=== PATIENT | female | born 2000 | race Hispanic/Latino ===

== ENCOUNTER 2025-02-01 14:18 | Day surgery (SDC) | payer OTHER ==
[2025-02-01] MEDS ORDERED: hydrALAZINE 20 MG/ML VIAL SLOW IVP PRN (15:26)
[2025-02-01 16:28] VITALS: BMI 31.1
== END 2025-02-01 17:02 | disposition home or self-care (01) ==
LOC: CSHLD/OP 14:18
PROVIDERS: ATTEND Family Medicine
DX: O36.8130 Decreased fetal movements, third trimester, not applicable or unspecified (principal); O47.1 False labor at or after 37 completed weeks of gestation; Z3A.37 37 weeks gestation of pregnancy
CPT/HCPCS: 76819; 99283

== ENCOUNTER 2025-02-17 18:21 | Inpatient (IN) | payer MEDICAID, OTHER ==
[2025-02-17 19:28] VITALS: BMI 30.2
[2025-02-17] MEDS ORDERED: hydrALAZINE 20 MG/ML VIAL SLOW IVP PRN ×2 (19:31→20:36)
[2025-02-17 19:43] LABS: Fetal Membranes Rupture RUPTURE DETECTED (No Rupture)
[2025-02-17] MEDS ORDERED: Tranexamic Acid 1,000 MG/10 ML VIAL IVP PRN (20:36)
[2025-02-17] MEDS ORDERED: Lidocaine 1% (PF) 30 ML VIAL SC PRN (20:36)
[2025-02-17] MEDS ORDERED: Diphenoxylate HCl/Atropine Tablet PO PRN ×2 (20:36)
[2025-02-17] MEDS ORDERED: Acetaminophen 500 MG TAB PO PRN (20:36)
[2025-02-17] MEDS ORDERED: Carboprost 250 MCG/ML AMP IM PRN (20:36)
[2025-02-17] MEDS ORDERED: Methylergonovine 0.2 MG/ML VIAL IM PRN (20:36)
[2025-02-17] MEDS ORDERED: Oxytocin 30 units/NS 500 ML 500 ML IV SCH ×2 (20:45→21:00)
[2025-02-17 21:29] LABS: Hematocrit 34.1 % (34.9-44.5); Hemoglobin 11.8 g/dL (12.0-15.5); Mean Corpuscular Hemoglobin 31.7 pg (27.0-33.0); Mean Corpuscular Volume 91.7 fL (81.6-98.3); Platelet Count 214 10x3/uL (150-450); Red Blood Cell (RBC) Count 3.72 10x6/uL (3.90-5.03); White Blood Cell (WBC) Count 7.65 10x3/uL (3.5-10.5)
[2025-02-17 21:57] LABS: Hep B Surf Ag - L&D Non-Reactive S/CO (NonReactive)
[2025-02-17 21:58] LABS: Syphilis Antibody Index 0.05 S/CO (<1.00 Non-Reactive)
[2025-02-18] MEDS: Ondansetron PF 4 MG/2 ML Vial IVP PRN (09:02)
[2025-02-18] MEDS: fentaNYL/Ropivacaine Epidural 100 ML ONE (09:05)
[2025-02-18] MEDS ORDERED: diphenhydrAMINE 50 MG/ML VIAL IVP PRN (09:11)
[2025-02-18] MEDS ORDERED: Ondansetron PF 4 MG/2 ML Vial IVP PRN ×2 (09:11→15:47)
[2025-02-18] MEDS ORDERED: Acetaminophen 325 MG TAB PO PRN (09:11)
[2025-02-18] MEDS ORDERED: Communication Order-Pharmacy FS SCH (09:15)
[2025-02-18] MEDS ORDERED: fentaNYL 2 mcg/Ropivacaine 0.2% Epidural 100 ML CADD EPIDURAL SCH (09:15)
[2025-02-18] MEDS ORDERED: hydrALAZINE 20 MG/ML VIAL SLOW IVP PRN (15:47)
[2025-02-18] MEDS ORDERED: diphenhydrAMINE 25 MG CAP PO PRN (15:47)
[2025-02-18] MEDS ORDERED: Bisacodyl 10 MG SUPP PR PRN (15:47)
[2025-02-18] MEDS ORDERED: Milk Of Magnesia 30 ML UDCUP PO PRN (15:47)
[2025-02-18] MEDS ORDERED: Benzocaine-Menthol 82.5 ML CAN TOP PRN (15:47)
[2025-02-18] MEDS ORDERED: Lanolin Ointment 7 GM TUBE TOP PRN (15:47)
[2025-02-18] MEDS ORDERED: HYDROcodone/Acetaminophen 5/325 mg Tablet PO PRN (15:47)
[2025-02-18] MEDS: Ferrous Sulfate 325 MG TAB PO SCH (18:42)
[2025-02-18] MEDS: Ibuprofen 800 MG TAB PO SCH ×2 (19:24→19:53)
[2025-02-20 08:11] VITALS: BP 92/55; TEMP 97.9
[2025-02-20] MEDS: Milk Of Magnesia 30 ML UDCUP PO SCH (14:18)
== END 2025-02-20 15:35 | disposition home or self-care (01) | DRG 807 ==
LOC: CSHLD/OP 18:21 → CSHLD 21:08 → CSHPP 02-18 14:40
PROVIDERS: ADMIT Family Medicine; ATTEND Family Medicine
PROC: 10E0XZZ Delivery of Products of Conception, External Approach (ICD-10-PCS; principal; 2025-02-18)
PROC: 4A1HXCZ Monitoring of Products of Conception, Cardiac Rate, External Approach (ICD-10-PCS; 2025-02-18)
PROC: 10907ZC Drainage of Amniotic Fluid, Therapeutic from Products of Conception, Via Natural or Artificial Opening (ICD-10-PCS; 2025-02-18)
PROC: 0HQ9XZZ Repair Perineum Skin, External Approach (ICD-10-PCS; 2025-02-18)
PROC: 3E0234Z Introduction of Serum, Toxoid and Vaccine into Muscle, Percutaneous Approach (ICD-10-PCS; 2025-02-18)
DX: O99.62 Diseases of the digestive system complicating childbirth (principal); Z37.0 Single live birth; Z3A.39 39 weeks gestation of pregnancy; Z79.899 Other long term (current) drug therapy; O70.0 First degree perineal laceration during delivery; Z23 Encounter for immunization
CPT/HCPCS: 51702; 84112; 85027; 86780; 86850; 86900; 86901; 87340; 99285; J2405